=== PATIENT | male | born 1960 | race Caucasian/White ===

== ENCOUNTER 2019-11-27 17:30 | Emergency (ER) | payer OTHER ==
[~2019-11-27] VITALS: Ht 167.6 cm; Wt 88.9 kg
[2019-11-27 17:43] VITALS: BP 148/83
[2019-11-27] MEDS ORDERED: CLINDAMYCIN 600 MG/4 ML VIAL IM ONE (17:45)
[2019-11-27] MEDS ORDERED: LIDOCAINE 2% 1000 MG/50 ML VIAL INJ ONE (17:45)
--- NOTE | 2019-11-27 18:03 | NUR ---
59 Y/O MALE PRESENTS WITH PARTIAL AMPUTATION OF 4TH DIGIT ON LEFT HAND S/P CLOSING IRON FENCE AND FINGER GETTING STUCK. AMPUTATION IS JUST BELOW NAIL BED. ACTIVELY BLEEDING AND DEFORMITY NOTED. PT STATES FINGER IS NOT GIVING HIM PAIN AT THE MOMENT, JUST PRESSURE. RADIAL PULSES PRESENT BILAT. PT STATES LAST TDAP IMMUNIZATION MAY HAVE BEEN OVER 5 YEARS AGO. PT DOES NOT APPEAR TO BE IN ANY APPARENT DISTRESS. CMS+, ROM+ BUE. NO PMH NKA
[2019-11-27] MEDS ORDERED: MORPHINE SULFATE 2 MG/ML SYR IM ONE (18:15)
--- NOTE | 2019-11-27 18:53 | NUR ---
ANDRE SET UP AT BEDSIDE, FREDERICK MCCLURE AT BEDSIDE FOR REPAIR
--- NOTE | 2019-11-27 19:07 | NUR ---
REPORT GIVEN TO SHAYNA PEPPER , TRANSFER OF CARE
--- NOTE | 2019-11-27 19:09 | NUR ---
REPORT RECIVED FROM DEIRDRE PEPPER. CONTINUATION OF CARE. PA AT BEDSIDE.
[2019-11-27] MEDS ORDERED: BACITRACIN OINT 500 UNITS/GM PKT TP ONE (19:10)
[2019-11-27 20:03] VITALS: BP 148/83
--- NOTE | 2019-11-27 20:03 | NUR ---
Patient discharged with v/s stable. Written and verbal after care instructions given and explained. Patient alert, oriented and verbalized understanding of instructions. Ambulatory with steady gait. All questions addressed prior to discharge. ID band removed. Patient advised to follow up with PMD. Rx of KEFLEX, MOTRIN, NORCO given. Patient educated on indication of medication including possible reaction and side effects. Opportunity to ask questions provided and answered.
== END 2019-11-27 20:03 | disposition home or self-care (01) ==
LOC: MED 17:30
DX: S68.115A Complete traumatic metacarpophalangeal amputation of left ring finger, initial encounter (principal); W20.8XXA Other cause of strike by thrown, projected or falling object, initial encounter; Y93.89 Activity, other specified; Y92.89 Other specified places as the place of occurrence of the external cause; Y99.8 Other external cause status
CPT/HCPCS: 12001; 73130; 90471; 90715; 96372; 99284; J2001; J2270; J3490; Q0092

== ENCOUNTER 2019-11-29 11:12 | Emergency (ER) | payer OTHER ==
[~2019-11-29] VITALS: Ht 170.2 cm; Wt 88.0 kg
[2019-11-29 11:16] VITALS: BP 153/83
--- NOTE | 2019-11-29 11:19 | NUR ---
PT AMBULATED TO BED 4 STEADY GAIT
--- NOTE | 2019-11-29 11:22 | NUR ---
59 Y/O M C/C SUTURE REMOVAL ON THIRD DIGIT OF LEFT HAND. SUTURES PLACED ON MONDAY. NO S/S OF INFECTION. NEURO VASCULAR WNL. NO PULSELESSNESS,PAIN,PALLOR,PARESTHESIA,PARALYSIS,POIKILOTHERMIA. CMS/ROM WNL. NKA. NO HX. NO RX. NO NVD. SIDE RAIL X1.
--- NOTE | 2019-11-29 11:33 | NUR ---
Dr. Blankenship is evaluating the patient at bedside.
--- NOTE | 2019-11-29 11:47 | NUR ---
LEFT HAND THIRD DIGIT BANDAGED AND APPLIED GAUZE IN PLACE. NO SIGN OF INFECTION NOTED.
[2019-11-29 11:48] VITALS: BP 153/83
--- NOTE | 2019-11-29 11:48 | NUR ---
Patient discharged with v/s stable. Written and verbal after care instructions given and explained. Patient verbalized understanding. Ambulatory with steady gait. All questions addressed prior to discharge. Advised to follow up with PMD.
== END 2019-11-29 11:48 | disposition home or self-care (01) ==
LOC: MED 11:12
DX: S68.115D Complete traumatic metacarpophalangeal amputation of left ring finger, subsequent encounter (principal); F17.210 Nicotine dependence, cigarettes, uncomplicated; Z48.00 Encounter for change or removal of nonsurgical wound dressing; X58.XXXD Exposure to other specified factors, subsequent encounter
CPT/HCPCS: 99281